=== PATIENT | male | born 1930 | race Caucasian/White ===

== ENCOUNTER 2016-11-18 01:51 | Emergency (ER) | payer MEDICARE, MEDICAID ==
[2016-11-18] MEDS ORDERED: Acetaminophen/Codeine 30-300mg Tablet ONE (04:06)
--- NOTE | 2016-11-18 08:47 | RAD ---
AP VIEW OF PELVIS: Date: 11/18/16 INDICATION: Fall with pelvic pain. FINDINGS: No definite displaced pelvic fracture is evident. There is healed deformity involving the left infer ior pubic ramus. There is healed instrumented fracture involving the right hip. There is a left hip endoprosthesis. There is diffuse osteopenia. There are scattered vascular calcifications. IMPRESSION: No acute osseous abnormality. POS: [facility]
--- NOTE | 2016-11-18 08:48 | RAD ---
CHEST ONE VIEW: History: Fall, chest pain. Comparison: 05-17-17 FINDINGS: The cardiac silhouette is magnified and upper limits of normal in size. Pulmonary vasculature remain s upper limits of normal. Mediastinum is midline with multi-lead left subclavian cardiac electronic device. No lobar consolidation or pneumothorax are apparent. There are degenerative changes of each shoulder. IMPRESSION: 1. No active cardiopulmonary abnormalities are demonstrated. POS: [facility]
--- NOTE | 2016-11-18 08:49 | CT ---
PRELIMINARY REPORT/[facility]/EMERGENCY AFTER HOURS PROCEDURE: EXAM: CT Head Without Intravenous Contrast CLINICAL HISTORY: 86 years old, male; Injury or trauma; Fall; hematoma to rt forehead and abrasions; Concussion / head injury; Consciousness not specified; Injury date: 11-17-2016 TECHNIQUE: Axial computed tomography images of the head/brain without intravenous contrast. COMPARISON: No relevant prior studies available. FINDINGS: Brain: Periventricular white matter areas of decreased density which are likely secondary to chronic ischemia from microvascular change. Diffuse cerebral atrophy. No mass effect or midline shift. No extra-axial fluid collection. No hemorrhage. Ventricles: Ventricular prominence in this patient with diffuse cerebral atrophy. Bones/joints: No fracture. Soft tissues: Anterolateral right scalp soft tissue swelling / hematoma. Sinuses: No significant disease of the paranasal sinuses. Mastoid air cells: No mastoiditis. IMPRESSION: No fracture. Anterolateral right scalp soft tissue swelling / hematoma. No acute intracranial findings. Age-related periventricular white matter changes. Diffuse cerebral atrophy. Thank you for allowing us to participate in the care of your patient. Dictated and Authenticated by: Nicanor Covarrubias MD 11/18/2016 3:45 AM Central Time ([place] \T\ [place]) FINAL REPORT EMERGENT AFTER HOURS CT OF BRAIN PERFORMED WITHOUT CONTRAST ENHANCEMENT: History: Patient had a fall with head injury with forearm abrasions. Comparison: 12-06-14 FINDINGS: There is marked generalized ventricular and sulcal prominence. There is decreased attenuation of the periventricular white matter. There are no signs of intracerebral hemorrhage or extraaxial fluid co llections. No mass lesion or mass effect. Right frontal scalp hematoma is present. IMPRESSION: 1. No acute intracranial abnormalities. 2. This report is in agreement with the temporary report issued by [facility]. POS: [facility]
--- NOTE | 2016-11-18 08:50 | CT ---
PRELIMINARY REPORT/[facility]/EMERGENCY AFTER HOURS PROCEDURE: EXAM: CT Cervical Spine Without Intravenous Contrast CLINICAL HISTORY: 86 years old, male; Injury or trauma; Fall; Sprain or strain cervical ligaments; Injury date: 2016 TECHNIQUE: Axial computed tomography images of the cervical spine without intravenous contrast. Coronal and sagittal reformatted images were created and reviewed. COMPARISON: No relevant prior studies available. FINDINGS: Vertebrae: No acute fracture. No subluxation. Old minimal superior compression of T3. Discs/spinal canal/neural foramina: Multilevel cervical degenerative / spondylitic changes with mult ilevel neural foraminal narrowing. Soft tissues: Unremarkable. Lung apices: Small bulla in each lung apex. IMPRESSION: No acute fracture or subluxation of the cervical spine. Thank you for allowing us to participate in the care of your patient. Dictated and Authenticated by: Nicanor Covarrubias MD 11/18/2016 3:51 AM Central Time ([place] \T\ [place]) FINAL REPORT EMERGENT AFTER HOURS CT OF THE CERVICAL SPINE PERFORMED WITHOUT CONTRAST ENHANCEMENT: History: Neck injury after fall. FINDINGS: Bones are demineralized. The vertebral bodies are normal in height. There is some disc narrowing at C5-6. There is some osteoporotic type cupping of multiple endplates beginning at C7 and involving T1 , T2, and T3. These are probably not on the basis of trauma but on the basis of osteoporotic change. There are marked degenerative facet changes present. There is no definitive CT evidence of an acute fracture. Lung apices show chronic appearing change. IMPRESSION: 1. Osteoporosis with cupping to the endplates which are most pronounced beginning at C7 and extendin g to T3. It is difficult to exclude if there is some minimal compression change related to an acute fall, but there is no bony retropulsion. I suspect that this is all related to osteoporotic change. If patient has persistent pain in this area, it may be helpful to obtain MRI to evaluate for any acu te edema change in this area that might suggest that changes may be related to more acute injury. 2. This report is in agreement with the temporary report issued by [facility]. POS: [facility]
== END 2016-11-18 07:50 ==
LOC: MADERS 01:51
DX: S01.81XA Laceration without foreign body of other part of head, initial encounter (principal); S51.011A Laceration without foreign body of right elbow, initial encounter; S20.211A Contusion of right front wall of thorax, initial encounter; J44.9 Chronic obstructive pulmonary disease, unspecified; F41.9 Anxiety disorder, unspecified; F32.9 Major depressive disorder, single episode, unspecified; I13.0 Hypertensive heart and chronic kidney disease with heart failure and stage 1 through stage 4 chronic kidney disease, or unspecified chronic kidney disease; I50.9 Heart failure, unspecified; N18.9 Chronic kidney disease, unspecified; D63.1 Anemia in chronic kidney disease; E78.2 Mixed hyperlipidemia; G30.9 Alzheimer's disease, unspecified; F02.80 Dementia in other diseases classified elsewhere, unspecified severity, without behavioral disturbance, psychotic disturbance, mood disturbance, and anxiety; Z95.0 Presence of cardiac pacemaker; Z86.73 Personal history of transient ischemic attack (TIA), and cerebral infarction without residual deficits; W18.30XA Fall on same level, unspecified, initial encounter
CPT/HCPCS: 70450; 71010; 72125; 72170; 94640; J7620

== ENCOUNTER 2016-12-18 17:18 | Outpatient (CLI) | payer MEDICAID, MEDICARE ==
--- NOTE | 2016-12-18 18:40 | RAD ---
HISTORY: Left rib pain. AP AND OBLIQUE VIEWS LEFT RIBS. AP and oblique views of the left wrist demonstrate no evidence of left rib fractures, subluxations o r bony lesions. IMPRESSION: Normal AP and oblique views left ribs. POS: [facility]
--- NOTE | 2016-12-18 18:41 | RAD ---
TWO VIEWS THORACIC SPINE 12/18/16 HISTORY: Thoracic pain. AP and lateral views thoracic spine is obtained. No evidence of fractures, subluxations or bony lesi ons seen. Osteopenia is noted. IMPRESSION: Normal two views thoracic spine. POS: [facility]
--- NOTE | 2016-12-18 18:42 | RAD ---
AP AND LATERAL VIEWS LUMBAR SPINE 12/18/16 HISTORY: Back pain. AP and lateral views lumbar spine is obtained. There is old compression fracture of the L1 vertebra. Osteoporosis is seen. Calcification of the aor ta is noted. IMPRESSION: L1 compression fracture likely old. No evidence of acute lumbar spine pathology seen. POS: [facility]
== END 2016-12-18 17:19 | disposition home or self-care (01) ==
LOC: MADRAD 17:18
PROVIDERS: ATTEND Family Medicine
DX: M54.9 Dorsalgia, unspecified (principal)
CPT/HCPCS: 72070; 72100

== ENCOUNTER 2018-01-14 16:21 | Emergency (ER) | payer MEDICARE, MEDICAID ==
[~2018-01-14 16:21] MED LIST: Sodium Chloride 0.9% 1,000 ML BAG ONE
[2018-01-14 17:24] LABS: #Basophils 0.1 thou/uL (0.0-0.2); #Monocytes 1.2 thou/uL (0.11-0.59); #Neutrophils 9.6 thou/uL (1.40-6.50); %Basophils 0.9 % (0.0-1.0); %Lymphocytes 21.5 % (21.0-51.0); %Monocytes 8.6 % (0.0-10.0); %Neutrophils 68.9 % (42.0-75.0); Hemoglobin 13.3 g/dL (14.0-18.0); Mean Corpuscular HGB CONC 32.9 g/dL (32.0-36.0); Mean Corpuscular Hemoglobin 30.6 pg (27.0-31.0); Platelet Count 111 thou/uL (130-400); RBC Distribution Width 12.5 % (11.5-14.5); Red Blood Cell (RBC) Count 4.36 mill/uL (4.70-6.10); White Blood Cell (WBC) Count 13.9 thou/uL (4.8-10.8)
[2018-01-14 17:28] LABS: ALT (SGPT) 17 U/L (8-55); AST (SGOT) 18 U/L (5-34); Albumin 3.8 g/dL (3.4-4.8); Alkaline Phosphatase 89 U/L (40-150); Anion Gap 19 mmol/L (10-20); BUN (Urea Nitrogen) 34 mg/dL (8.4-25.7); Bilirubin, Total 1.3 mg/dL (0.2-1.2); Calc. Creatinine Clearance 0 mL/min (70-130); Calcium 9.3 mg/dL (7.8-10.44); Carbon Dioxide 20 mmol/L (23-31); Chloride 111 mmol/L (98-107); Estimated GFR-MDRD 35; Globulin 3.3 g/dL (2.4-3.5); Glucose 147 mg/dL (83-110); Potassium 3.2 mmol/L (3.5-5.1); Protein, Total 7.1 g/dL (5.8-8.1); Sodium 147 mmol/L (136-145)
[2018-01-14 17:49] LABS: Bilirubin Small (Negative); Blood, Urine Negative (Negative); Clarity Clear (Clear); Glucose, Urine (Dipstick) Negative (Negative); Leukocyte Small (Negative); Nitrite Negative (Negative); Protein, Urine (Dipstick) 30 mg/dL (Neg-Trace); Specific Gravity, Urine 1.025 (1.005-1.030)
--- NOTE | 2018-01-14 17:50 | RAD ---
AP VIEW CHEST: 01/14/18 HISTORY: Fever and hypoxia. AP view chest obtained on 01/14/18. Comparison made to previous exam from 11/18/16. AP view chest demonstrates areas of gas beneath the right hemidiaphragm. This may represent a loop of bowel or may represent free intraperitoneal air. Cardiomegaly is seen. Pulmonary vascular congestion is seen. A dual lead intracardiac pacing device is seen. IMPRESSION: Free intraperitoneal air versus loop of bowel beneath the right hemidiaphragm. Correlate with CT abdo men and pelvis to further characterize. POS: [facility]
[2018-01-14 18:00] LABS: Bacteria/HPF 1+ HPF (None Seen); RBC/HPF 0-3 HPF (0-3); Squamous Epithelial 0-3 HPF (0-3)
--- NOTE | 2018-01-14 18:49 | CT ---
NONCONTRAST ENHANCED CT IMAGES ABDOMEN AND PELVIS 01/14/18 HISTORY: Patient with questionable free intraperitoneal air. Noncontrast enhanced CT images of the abdomen and pelvis is obtained. Bibasilar areas of atelectasis or patchy pneumonia is present. The liver and spleen are unremarkable. Area of lucency seen beneath the right hemidiaphragm represents gas within the hepatic flexure of the colon and does not represent free intraperitoneal air. The liver and spleen are unremarkable. Adrenal glands are unremarkable. Numerous calcifications seen in the left collecting system. These likely represent numerous nonobstructing left renal calculi. The pancreas is unremarkable. No evidence of periaortic lymphadenopathy seen. Atherosclerotic calcification of the abdominal aorta is seen. There is a urinary catheter within the bladder. Numerous descending and sigmoid diverticula are present without evidence of obvious diverticulitis. Bilateral hip surgical hardware is in place. There is an abnormally dilated loop of small bowel on ax ial images #46 through 55 in the right lower quadrant of the abdomen with coronal images #39 through 52. Significance of this is unknown. IMPRESSION: 1. Small segmented area of focal small bowel dilatation. 2. Extensive colonic diverticulosis. 3. No evidence of free intraperitoneal air. 4. Numerous small nonobstructing left renal calculi. POS: [facility]
== END 2018-01-14 19:19 | disposition home or self-care (01) ==
LOC: MADERS 16:21
DX: A41.9 Sepsis, unspecified organism (principal); J18.9 Pneumonia, unspecified organism; I50.9 Heart failure, unspecified; J44.9 Chronic obstructive pulmonary disease, unspecified; F03.90 Unspecified dementia, unspecified severity, without behavioral disturbance, psychotic disturbance, mood disturbance, and anxiety; F41.9 Anxiety disorder, unspecified; F32.9 Major depressive disorder, single episode, unspecified; Z86.73 Personal history of transient ischemic attack (TIA), and cerebral infarction without residual deficits
CPT/HCPCS: 36415; 51702; 71045; 74176; 80053; 81003; 81015; 83605; 85025; 87040; 93005; 96365; J1956; J7050

== ENCOUNTER 2018-01-21 13:44 | Inpatient (IN) | payer MEDICARE, MEDICAID ==
[2018-01-21] MEDS ORDERED: Ziprasidone 20 MG VIAL IM PRN (16:16)
[2018-01-21] MEDS ORDERED: Sterile Water 10 ML VIAL FS PRN (16:27)
[2018-01-21] MEDS: CARBOXYMETHYLCELLULOSE EA EYE SCH ×2 (18:01→23:11)
[2018-01-21] MEDS: Artificial Tear Sol 15 ML BOT EA EYE SCH (21:01)
[2018-01-21] MEDS: Multivitamin W/ Minerals 1 TAB PO SCH (21:02)
[2018-01-21] MEDS: Gabapentin 400 MG CAP PO SCH (21:02)
[2018-01-21] MEDS: Oxybutynin 5 MG TAB PO SCH (21:02)
[2018-01-22] MEDS: Multivitamin W/ Minerals 1 TAB PO SCH ×2 (08:40→20:24)
[2018-01-22] MEDS: Fish Oil 1,000 MG CAP PO SCH (08:40)
[2018-01-22] MEDS: Amlodipine 5 MG TAB PO SCH (08:40)
[2018-01-22] MEDS: Ferrous Sulfate 325 MG TAB PO SCH (08:40)
[2018-01-22] MEDS: CARBOXYMETHYLCELLULOSE EA EYE SCH (08:41)
[2018-01-22] MEDS: Artificial Tear Sol 15 ML BOT EA EYE SCH ×2 (08:42→20:24)
[2018-01-22] MEDS ORDERED: Artificial Tear Sol 15 ML BOT EA EYE PRN (10:05)
--- NOTE | 2018-01-22 14:05 | HP ---
DATE OF ADMISSION: 01/21/2018 ATTENDING: Dr. Murry. REASON FOR ADMISSION: Skilled rehabilitation in [facility]. HISTORY OF PRESENT ILLNESS AND HOSPITAL COURSE: Mr. Mora is an 87-year-old group home resident with advanced dementia, CHF, COPD, CVA, chronic kidney disease and chronic thrombocytopenia, who was reported to have an acute onset of cough, low-grade fever and altered mental status. This is associated with hypoxia and worsening confusion. He was sent to [facility] and was subsequently admitted on 01/14/2018 pneumonia with possible sepsis. Upon presentation, patient has a lactic acid of 4 with an anion gap of 19 and creatinine of 1.86. His x-ray was concerning for some free air, so he underwent a CT scan of the abdomen and pelvis which did not show any evidence for free intraperitoneal air. There was some question of pulmonary vascular congestion and infiltrate in the right lower lobe, possibly healthcare related, pneumonia, so he was admitted and treated appropriately in the hospital. His UA also showed mild urinary tract infection. Patient was started on IV vanc and was started also on gentle IV fluid hydration. His blood culture was negative x2. He had significant neutrophils 85%, which is down to 90% prior to discharge. There was no significant leukocytosis reported. His renal function improved to normal with a GFR of 70 prior to discharge. During his hospital stay there was reported behavioral issues in the beginning that requires a 24 hour sitter. This was associated with altered mental status that eventually cleared up per report,. He was deemed at baseline his mental status prior to discharge not requiring a sitter any longer. Prior to discharge, it was reported by the hospitalist that he was making intelligent conversation, but very weak, difficult to understand because of the garbled speech that he had at baseline. There was also a speech therapy evaluation because of the dysphagia. There was a report that patient has not been eating appropriately in the hospital and deemed to be very high risk of aspiration. After contacting the patient's family including his biological children and his stepdaughter, Lisbeth, who acts as the primary caregiver and then medical power of compliance attorney. It was a mutual decision of the family to decline PEG tube feeding. The patient was started on pleasure feeding as per speech therapy's recommendation. He is currently in pureed diet and nectar thickened liquid. The family also confirmed the DNR status of the patient. There was also a palliative care consult during this hospitalization and the patient opted trial of skilled therapy in [facility] and may reconsider hospice care in the event that patient does not improve with the therapy. Patient was transferred to [facility] for skilled rehabilitation. When evaluated , patient's family is not at bedside. Patient was awake, alert, knows his name and able to recognize me as his doctor. He answers simple questions, but with garbled speech. He was tolerating the pureed diet and nectar thickened liquids when examined. There was no choking, coughing spells when eating. Patient appears comfortable in exam and he denies any issues or pain. PAST MEDICAL HISTORY: Hypertension, advanced dementia, congestive heart failure , unknown ejection fraction, [facility] COPD, previously on home oxygen. Cardiac pacemaker in situ, CKD, thrombocytopenia, osteoarthritis, depression, anxiety, bilateral broken hips at different times, history of multiple falls due to unsteadiness of gait. History of CVA, history of orthostatic hypotension, previously on midodrine. History of dysautonomic syndrome, history of chronic low back pain, neuropathic pain, closed fracture of mid cervical section been more secondary to fall, combined hyperlipidemia, overactive bladder, chronic anemia, history of recurrent urinary tract infection. PAST SURGICAL HISTORY: 1. 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 2. Right hip surgery on 04/20/2014. 3. Left hip surgery on 01/02/2013. FAMILY HISTORY: Noncontributory. SOCIAL HISTORY: Former smoker for 20 years. He has not been smoking for several years now. No history of alcohol intake. He is a . Stepdaughter is nonmedical power of compliance attorney and is actively involved in patient 's care. ALLERGIES: PENICILLIN, AGGRENOX, FENTANYL and NIACIN. PREVIOUS HOSPITALIZATION: 10/07/2015 for complicated UTI/urosepsis at [facility] and as per surgical history. REVIEW OF SYSTEMS: Limited secondary to advanced dementia. MEDICATIONS: Acetaminophen 650 mg q.4 hours p.r.n., amlodipine 10 mg p.o. daily , Artificial Tears 1 drop each eye q.i.d. p.r.n., vitamin D3 of 2000 units p.o. daily, ferrous sulfate 325 mg p.o. daily, fish oil 1000 mg p.o. daily, gabapentin 400 mg p.o. at bedtime, multivitamin with minerals 1 tablet p.o. b.i.d., oxybutynin 5 mg p.o. at bedtime, sertraline 100 mg p.o. at bedtime, Geodon 10 mg IM q.8 hours p.r.n., memantine one capsule daily, donepezil, Levaquin 500 mg p.o. daily for 7 days. PHYSICAL EXAMINATION: VITAL SIGNS: Blood pressure 144/70, temperature 97.6, pulse 61, respiration rate 18, O2 sat 94% room air, weight 119 pounds, height 5 feet 8 inches. GENERAL: Patient is awake, alert, knows his name only confused, comfortable in exam, not in distress. HEENT: Normocephalic, atraumatic. PERRL, intact EOM. Anicteric sclerae. Oral mucosa is moist. Tongue in midline. No facial asymmetry. NECK: Supple. No LAD. Full range of motion, no swelling, no JVD, no bruit. CHEST: Normal excursion, clear to auscultation bilaterally. HEART: RRR. Normal S1 and S2. No murmurs. ABDOMEN: Flat, soft, normoactive bowel sounds, nondistended, nontender. No rebound or guarding bilaterally. EXTREMITIES: No edema, no cyanosis. NEUROLOGIC: Nonfocal. DTRs 2+. Gait unsteady. Answers questions with garbled and incomprehensible speech. PSYCHIATRIC: Confused, calm and cooperative. SKIN: Dry. No rashes, no lesions, no jaundice. LABORATORY DATA: Latest lab works and tests 01/20/2018, WBC 10.3, hemoglobin 13.6, hematocrit 40, platelets 143. Sodium 141, potassium 3.7, chloride 111, anion gap 14, BUN 15, creatinine 1.010, estimated GFR 70, glucose 89, calcium 9.1. Lactic acid on 01/15/2018 was 0.7. ASSESSMENT: 1.Severe debility 2. Healthcare-associated pneumonia. 3. Chronic dysphagia, on pleasure feeding of pureed and thickened diet as per speech therapy's recommendations. 4. Alzheimer dementia, advanced, with behavioral disturbances. . 5. Hyponatremia, resolved.. 6. Urinary tract infection, improved 7. Acute kidney injury, resolved. 8. Hypertension. 9. Parkinson's disease. 10. Moderate Maluntrtion. 11. Unstable gait. 12. History of falls. PLAN: 1. The patient is admitted for skilled rehabilitation in [facility]. We will continue all current medications per transfer list except for memantine secondary to drug reactions including potential risk for prolonged QT. 2. DIET: For pleasure feeding with pureed and thickened nectar liquids per speech therapy's recommendations from the hospital. 3. Aspiration precautions. 4. ACTIVITY: Complete bed rest with assistance for transfers. 5. Refer to PT, OT and ST for evaluate and treat. 6. CODE STATUS: DNR. 7. DISPOSITION: snf. Lengthy discussion with the family as represented by Lisbeth Heredia on the phone. We discussed patient's current status, previous tests and findings in the hospital and current medications. Stepdaughter, Lisbeth Heredia is well aware of the patient's advanced dementia, worsening confusion with behaviors. We discussed nutritional status of the patient. Per records, patient has moderate malnutrition (chronic illness). Kirsty's family declined aggressive interventions including PEG tube feedings. She is well aware of the risk of potential aspiration secondary to advanced dementia, confusion and history of dysphagia. Ms. Taylor also mentioned that Palliative Care was consulted in the hospital that they were not ready for this yet. Ms. Taylor also reports that possible placement in [facility], but may change depending on patient's improvement status. Ms. Heredia who acts as the nonmedical power of compliance attorney is the one assigned by patient's three biological sons as per hospital records and is the main contact for patient's care. Ms. Heredia is agreeable to patient's current treatment. We will notify her anytime with acute changes in the patient's status and management. Ms. Heredia was encouraged to ask questions and all her questions were answered to her satisfaction. She was very thankful for letting her know of patient's current conditions. [facility]ONE
[2018-01-22] MEDS: Gabapentin 400 MG CAP PO SCH (20:24)
[2018-01-22] MEDS: Oxybutynin 5 MG TAB PO SCH (20:25)
[2018-01-23] MEDS: Amlodipine 5 MG TAB PO SCH (08:16)
[2018-01-23] MEDS: Ferrous Sulfate 325 MG TAB PO SCH (08:17)
[2018-01-23] MEDS: Fish Oil 1,000 MG CAP PO SCH (08:17)
[2018-01-23] MEDS: Artificial Tear Sol 15 ML BOT EA EYE SCH ×2 (08:17→20:26)
[2018-01-23] MEDS: Multivitamin W/ Minerals 1 TAB PO SCH ×2 (08:17→20:26)
[2018-01-23] MEDS: Gabapentin 400 MG CAP PO SCH (20:26)
[2018-01-23] MEDS: Oxybutynin 5 MG TAB PO SCH (20:26)
[2018-01-24] MEDS: Acetaminophen 325 MG TAB PO PRN ×3 (05:53→20:08)
[2018-01-24] MEDS: Fish Oil 1,000 MG CAP PO SCH (08:43)
[2018-01-24] MEDS: Amlodipine 5 MG TAB PO SCH (08:43)
[2018-01-24] MEDS: Multivitamin W/ Minerals 1 TAB PO SCH ×2 (08:44→20:08)
[2018-01-24] MEDS: Artificial Tear Sol 15 ML BOT EA EYE SCH ×2 (08:44→20:07)
[2018-01-24] MEDS ORDERED: Ferrous Sulfate 220 MG/5 ML PO SCH (09:00)
[2018-01-24 14:27] LABS: Anion Gap 14 mmol/L (10-20); BUN (Urea Nitrogen) 17 mg/dL (8.4-25.7); Calc. Creatinine Clearance 39 mL/min (70-130); Calcium 8.8 mg/dL (7.8-10.44); Carbon Dioxide 23 mmol/L (23-31); Chloride 109 mmol/L (98-107); Estimated GFR-MDRD 70; Potassium 3.8 mmol/L (3.5-5.1); Sodium 142 mmol/L (136-145)
[2018-01-24 15:00] LABS: Glucose 53 mg/dL (83-110)
[2018-01-24] MEDS: Oxybutynin 5 MG TAB PO SCH (20:08)
[2018-01-24] MEDS: Gabapentin 400 MG CAP PO SCH (20:08)
[2018-01-25] MEDS: Multivitamin W/ Minerals 1 TAB PO SCH ×2 (08:34→22:16)
[2018-01-25] MEDS: Amlodipine 5 MG TAB PO SCH (08:35)
[2018-01-25] MEDS: Fish Oil 1,000 MG CAP PO SCH (08:35)
[2018-01-25] MEDS: Artificial Tear Sol 15 ML BOT EA EYE SCH ×2 (08:35→22:15)
[2018-01-25] MEDS ORDERED: Ferrous Sulfate 325 MG TAB PO SCH (09:00)
[2018-01-25] MEDS: Oxybutynin 5 MG TAB PO SCH (22:16)
[2018-01-25] MEDS: Gabapentin 400 MG CAP PO SCH (22:19)
[2018-01-26] MEDS: Amlodipine 5 MG TAB PO SCH (08:06)
[2018-01-26] MEDS: Fish Oil 1,000 MG CAP PO SCH (08:08)
[2018-01-26] MEDS: Multivitamin W/ Minerals 1 TAB PO SCH ×2 (08:08→21:20)
[2018-01-26] MEDS: Artificial Tear Sol 15 ML BOT EA EYE SCH ×2 (08:08→21:40)
[2018-01-26] MEDS: Oxybutynin 5 MG TAB PO SCH (21:20)
[2018-01-26] MEDS: Gabapentin 400 MG CAP PO SCH (21:20)
[2018-01-26] MEDS: Acetaminophen 325 MG TAB PO PRN (21:20)
[2018-01-27] MEDS: Amlodipine 5 MG TAB PO SCH (08:49)
[2018-01-27] MEDS: Artificial Tear Sol 15 ML BOT EA EYE SCH ×2 (08:50→21:28)
[2018-01-27] MEDS: Multivitamin W/ Minerals 1 TAB PO SCH ×2 (08:50→21:29)
[2018-01-27] MEDS: Fish Oil 1,000 MG CAP PO SCH (08:50)
[2018-01-27] MEDS: Gabapentin 400 MG CAP PO SCH (21:28)
[2018-01-27] MEDS: Acetaminophen 325 MG TAB PO PRN (21:28)
[2018-01-27] MEDS: Oxybutynin 5 MG TAB PO SCH (21:29)
[2018-01-28] MEDS: Amlodipine 5 MG TAB PO SCH (08:31)
[2018-01-28] MEDS: Multivitamin W/ Minerals 1 TAB PO SCH ×2 (08:31→21:48)
[2018-01-28] MEDS: Artificial Tear Sol 15 ML BOT EA EYE SCH ×2 (08:32→21:47)
[2018-01-28] MEDS: Fish Oil 1,000 MG CAP PO SCH (08:35)
[2018-01-28] MEDS: Gabapentin 400 MG CAP PO SCH (21:48)
[2018-01-28] MEDS: Oxybutynin 5 MG TAB PO SCH (21:48)
[2018-01-29] MEDS: Amlodipine 5 MG TAB PO SCH (11:30)
[2018-01-29] MEDS: Artificial Tear Sol 15 ML BOT EA EYE SCH ×2 (11:30→20:58)
[2018-01-29] MEDS: Fish Oil 1,000 MG CAP PO SCH (11:31)
[2018-01-29] MEDS: Multivitamin W/ Minerals 1 TAB PO SCH ×2 (11:32→20:58)
[2018-01-29] MEDS: Oxybutynin 5 MG TAB PO SCH (20:58)
[2018-01-29] MEDS: Gabapentin 400 MG CAP PO SCH (20:58)
[2018-01-30] MEDS: Artificial Tear Sol 15 ML BOT EA EYE SCH ×2 (11:03→21:19)
[2018-01-30] MEDS: Fish Oil 1,000 MG CAP PO SCH ×2 (11:03→11:05)
[2018-01-30] MEDS: Multivitamin W/ Minerals 1 TAB PO SCH ×2 (11:03→21:19)
[2018-01-30] MEDS: Amlodipine 5 MG TAB PO SCH (11:04)
[2018-01-30] MEDS: Gabapentin 400 MG CAP PO SCH (21:19)
[2018-01-30] MEDS: Oxybutynin 5 MG TAB PO SCH (21:19)
[2018-01-31] MEDS: Multivitamin W/ Minerals 1 TAB PO SCH ×2 (09:09→20:27)
[2018-01-31] MEDS: Amlodipine 5 MG TAB PO SCH (09:10)
[2018-01-31] MEDS: Artificial Tear Sol 15 ML BOT EA EYE SCH ×2 (09:11→20:28)
[2018-01-31] MEDS: Acetaminophen 325 MG TAB PO PRN ×2 (13:27→20:27)
[2018-01-31] MEDS: Gabapentin 400 MG CAP PO SCH (20:26)
[2018-01-31] MEDS: Oxybutynin 5 MG TAB PO SCH (20:27)
[2018-02-01] MEDS: Artificial Tear Sol 15 ML BOT EA EYE SCH ×2 (08:28→20:28)
[2018-02-01] MEDS: Amlodipine 5 MG TAB PO SCH (08:28)
[2018-02-01] MEDS: Fish Oil 1,000 MG CAP PO SCH (08:28)
[2018-02-01] MEDS: Multivitamin W/ Minerals 1 TAB PO SCH ×2 (08:28→20:28)
[2018-02-01] MEDS: Acetaminophen 325 MG TAB PO PRN ×2 (08:38→20:30)
[2018-02-01] MEDS: Gabapentin 400 MG CAP PO SCH (20:28)
[2018-02-01] MEDS: Oxybutynin 5 MG TAB PO SCH (20:28)
[2018-02-02] MEDS: Amlodipine 5 MG TAB PO SCH (09:09)
[2018-02-02] MEDS: Acetaminophen 325 MG TAB PO PRN ×2 (09:09→20:47)
[2018-02-02] MEDS: Fish Oil 1,000 MG CAP PO SCH (09:09)
[2018-02-02] MEDS: Multivitamin W/ Minerals 1 TAB PO SCH ×2 (09:09→20:43)
[2018-02-02] MEDS: Artificial Tear Sol 15 ML BOT EA EYE SCH ×2 (09:10→20:39)
[2018-02-02] MEDS: Oxybutynin 5 MG TAB PO SCH (20:44)
[2018-02-02] MEDS: Gabapentin 400 MG CAP PO SCH (20:46)
[2018-02-03] MEDS: Amlodipine 5 MG TAB PO SCH (08:54)
[2018-02-03] MEDS: Multivitamin W/ Minerals 1 TAB PO SCH ×2 (08:54→20:29)
[2018-02-03] MEDS: Fish Oil 1,000 MG CAP PO SCH (08:55)
[2018-02-03] MEDS: Acetaminophen 325 MG TAB PO PRN ×2 (08:55→20:29)
[2018-02-03] MEDS: Artificial Tear Sol 15 ML BOT EA EYE SCH ×2 (08:55→20:29)
[2018-02-03] MEDS: Oxybutynin 5 MG TAB PO SCH (20:28)
[2018-02-03] MEDS: Gabapentin 400 MG CAP PO SCH (20:29)
[2018-02-04] MEDS: Acetaminophen 325 MG TAB PO PRN ×2 (10:58→20:14)
[2018-02-04] MEDS: Fish Oil 1,000 MG CAP PO SCH (10:58)
[2018-02-04] MEDS: Amlodipine 5 MG TAB PO SCH (10:59)
[2018-02-04] MEDS: Multivitamin W/ Minerals 1 TAB PO SCH ×2 (10:59→20:14)
[2018-02-04] MEDS: Artificial Tear Sol 15 ML BOT EA EYE SCH ×2 (11:01→20:15)
[2018-02-04] MEDS: Gabapentin 400 MG CAP PO SCH (20:14)
[2018-02-04] MEDS: Oxybutynin 5 MG TAB PO SCH (20:15)
[2018-02-05] MEDS: Amlodipine 5 MG TAB PO SCH (08:20)
[2018-02-05] MEDS: Fish Oil 1,000 MG CAP PO SCH (08:20)
[2018-02-05] MEDS: Multivitamin W/ Minerals 1 TAB PO SCH ×2 (08:20→20:38)
[2018-02-05] MEDS: Acetaminophen 325 MG TAB PO PRN ×2 (08:21→20:38)
[2018-02-05] MEDS: Artificial Tear Sol 15 ML BOT EA EYE SCH ×2 (08:21→20:37)
[2018-02-05] MEDS: Oxybutynin 5 MG TAB PO SCH (20:37)
[2018-02-05] MEDS: Gabapentin 400 MG CAP PO SCH (20:38)
[2018-02-06] MEDS: Artificial Tear Sol 15 ML BOT EA EYE SCH ×2 (08:19→20:43)
[2018-02-06] MEDS: Fish Oil 1,000 MG CAP PO SCH (08:20)
[2018-02-06] MEDS: Amlodipine 5 MG TAB PO SCH (08:21)
[2018-02-06] MEDS: Multivitamin W/ Minerals 1 TAB PO SCH ×2 (08:21→20:43)
[2018-02-06] MEDS: Acetaminophen 325 MG TAB PO PRN ×2 (08:21→20:43)
[2018-02-06] MEDS: Oxybutynin 5 MG TAB PO SCH (20:43)
[2018-02-06] MEDS: Gabapentin 400 MG CAP PO SCH (20:43)
[2018-02-07] MEDS: Amlodipine 5 MG TAB PO SCH (08:12)
[2018-02-07] MEDS: Fish Oil 1,000 MG CAP PO SCH (08:12)
[2018-02-07] MEDS: Multivitamin W/ Minerals 1 TAB PO SCH ×2 (08:14→21:05)
[2018-02-07] MEDS: Artificial Tear Sol 15 ML BOT EA EYE SCH ×2 (08:15→21:04)
[2018-02-07] MEDS: Acetaminophen 325 MG TAB PO PRN (21:05)
[2018-02-07] MEDS: Gabapentin 400 MG CAP PO SCH (21:05)
[2018-02-07] MEDS: Oxybutynin 5 MG TAB PO SCH (21:05)
[2018-02-08] MEDS: Amlodipine 5 MG TAB PO SCH (08:07)
[2018-02-08] MEDS: Multivitamin W/ Minerals 1 TAB PO SCH ×2 (08:08→20:26)
[2018-02-08] MEDS: Artificial Tear Sol 15 ML BOT EA EYE SCH ×2 (08:08→20:26)
[2018-02-08] MEDS: Fish Oil 1,000 MG CAP PO SCH (08:13)
[2018-02-08] MEDS: Gabapentin 400 MG CAP PO SCH (20:26)
[2018-02-08] MEDS: Acetaminophen 325 MG TAB PO PRN (20:26)
[2018-02-08] MEDS: Oxybutynin 5 MG TAB PO SCH (20:26)
[2018-02-09] MEDS: Fish Oil 1,000 MG CAP PO SCH (07:56)
[2018-02-09] MEDS: Artificial Tear Sol 15 ML BOT EA EYE SCH ×2 (07:56→20:43)
[2018-02-09] MEDS: Amlodipine 5 MG TAB PO SCH (07:57)
[2018-02-09] MEDS: Multivitamin W/ Minerals 1 TAB PO SCH ×2 (07:57→20:42)
[2018-02-09] MEDS: Oxybutynin 5 MG TAB PO SCH (20:42)
[2018-02-09] MEDS: Acetaminophen 325 MG TAB PO PRN (20:42)
[2018-02-09] MEDS: Gabapentin 400 MG CAP PO SCH (20:42)
[2018-02-10] MEDS: Artificial Tear Sol 15 ML BOT EA EYE SCH ×2 (08:06→19:59)
[2018-02-10] MEDS: Fish Oil 1,000 MG CAP PO SCH (08:06)
[2018-02-10] MEDS: Acetaminophen 325 MG TAB PO PRN ×2 (08:07→19:57)
[2018-02-10] MEDS: Amlodipine 5 MG TAB PO SCH (08:07)
[2018-02-10] MEDS: Multivitamin W/ Minerals 1 TAB PO SCH ×2 (08:08→19:59)
--- NOTE | 2018-02-10 13:32 | RAD ---
CHEST ONE VIEW: HISTORY: Pneumonia. Followup. COMPARISON: 01/14/2018 FINDINGS: The cardiac silhouette is magnified and enlarged. The pulmonary vasculature remains engorged. The m ediastinum is midline with a dual-lead left subclavian cardiac electronic device. Patchy parenchymal opacity at the lung base is less pronounced than on the previous study. No lobar consolidation or e vidence of pneumothorax. IMPRESSION: 1. Interval clearing, bibasilar patchy infiltrates. No new abnormalities demonstrated. 2. Borderline pulmonary vascular congestion, stable. POS: [facility]
[2018-02-10] MEDS: Oxybutynin 5 MG TAB PO SCH (19:59)
[2018-02-10] MEDS: Gabapentin 400 MG CAP PO SCH (19:59)
[2018-02-11] MEDS: Multivitamin W/ Minerals 1 TAB PO SCH ×2 (08:20→20:23)
[2018-02-11] MEDS: Amlodipine 5 MG TAB PO SCH (08:20)
[2018-02-11] MEDS: Artificial Tear Sol 15 ML BOT EA EYE SCH ×2 (08:21→20:23)
[2018-02-11] MEDS: Fish Oil 1,000 MG CAP PO SCH (08:21)
[2018-02-11] MEDS: Acetaminophen 325 MG TAB PO PRN ×2 (08:21→20:23)
[2018-02-11] MEDS: Gabapentin 400 MG CAP PO SCH (20:22)
[2018-02-11] MEDS: Oxybutynin 5 MG TAB PO SCH (20:23)
[2018-02-12] MEDS: Amlodipine 5 MG TAB PO SCH (09:50)
[2018-02-12] MEDS: Artificial Tear Sol 15 ML BOT EA EYE SCH ×2 (09:50→20:07)
[2018-02-12] MEDS: Multivitamin W/ Minerals 1 TAB PO SCH ×2 (09:50→20:08)
[2018-02-12] MEDS: Fish Oil 1,000 MG CAP PO SCH (09:50)
[2018-02-12] MEDS: Acetaminophen 325 MG TAB PO PRN (20:08)
[2018-02-12] MEDS: Gabapentin 400 MG CAP PO SCH (20:08)
[2018-02-12] MEDS: Oxybutynin 5 MG TAB PO SCH (20:08)
[2018-02-13] MEDS: Amlodipine 5 MG TAB PO SCH (09:49)
[2018-02-13] MEDS: Multivitamin W/ Minerals 1 TAB PO SCH ×2 (09:49→20:33)
[2018-02-13] MEDS: Fish Oil 1,000 MG CAP PO SCH (09:49)
[2018-02-13] MEDS: Artificial Tear Sol 15 ML BOT EA EYE SCH ×2 (09:54→20:33)
[2018-02-13] MEDS: Gabapentin 400 MG CAP PO SCH (20:33)
[2018-02-13] MEDS: Oxybutynin 5 MG TAB PO SCH (20:33)
[2018-02-13] MEDS: Acetaminophen 325 MG TAB PO PRN (20:43)
[2018-02-14] MEDS: Fish Oil 1,000 MG CAP PO SCH (08:46)
[2018-02-14] MEDS: Amlodipine 5 MG TAB PO SCH (08:58)
[2018-02-14] MEDS: Multivitamin W/ Minerals 1 TAB PO SCH ×2 (08:59→21:12)
[2018-02-14] MEDS: Artificial Tear Sol 15 ML BOT EA EYE SCH ×2 (09:03→21:15)
[2018-02-14] MEDS: Acetaminophen 325 MG TAB PO PRN ×2 (11:25→21:11)
[2018-02-14] MEDS: Gabapentin 400 MG CAP PO SCH (21:16)
[2018-02-14] MEDS: Oxybutynin 5 MG TAB PO SCH (21:16)
[2018-02-15] MEDS: Fish Oil 1,000 MG CAP PO SCH (08:11)
[2018-02-15] MEDS: Acetaminophen 325 MG TAB PO PRN ×2 (08:12→20:19)
[2018-02-15] MEDS: Amlodipine 5 MG TAB PO SCH (08:12)
[2018-02-15] MEDS: Artificial Tear Sol 15 ML BOT EA EYE SCH ×2 (08:12→20:29)
[2018-02-15] MEDS: Multivitamin W/ Minerals 1 TAB PO SCH ×2 (08:12→20:20)
[2018-02-15] MEDS: Oxybutynin 5 MG TAB PO SCH (20:21)
[2018-02-15] MEDS: Gabapentin 400 MG CAP PO SCH (20:21)
[2018-02-16] MEDS: Amlodipine 5 MG TAB PO SCH (07:43)
[2018-02-16] MEDS: Multivitamin W/ Minerals 1 TAB PO SCH ×2 (07:44→20:34)
[2018-02-16] MEDS: Artificial Tear Sol 15 ML BOT EA EYE SCH ×2 (07:44→20:34)
[2018-02-16] MEDS: Fish Oil 1,000 MG CAP PO SCH (07:44)
[2018-02-16] MEDS: Acetaminophen 325 MG TAB PO PRN (07:44)
[2018-02-16] MEDS: Gabapentin 400 MG CAP PO SCH (20:34)
[2018-02-16] MEDS: Oxybutynin 5 MG TAB PO SCH (20:34)
[2018-02-17] MEDS: Artificial Tear Sol 15 ML BOT EA EYE SCH ×2 (08:13→21:09)
[2018-02-17] MEDS: Amlodipine 5 MG TAB PO SCH (08:14)
[2018-02-17] MEDS: Multivitamin W/ Minerals 1 TAB PO SCH ×2 (08:15→21:10)
[2018-02-17] MEDS: Fish Oil 1,000 MG CAP PO SCH (08:17)
[2018-02-17] MEDS: Polyethylene Glycol 3350 17 GM Packet PO SCH (08:59)
[2018-02-17] MEDS ORDERED: Docusate 100 MG CAP PO PRN (09:03)
[2018-02-17 18:52] VITALS: BMI 18.5
[2018-02-17 19:26] VITALS: TEMP 97.2
[2018-02-17] MEDS: Gabapentin 400 MG CAP PO SCH (21:10)
[2018-02-17] MEDS: Oxybutynin 5 MG TAB PO SCH (21:10)
[2018-02-18] MEDS: Polyethylene Glycol 3350 17 GM Packet PO SCH (08:05)
[2018-02-18] MEDS: Amlodipine 5 MG TAB PO SCH (08:05)
[2018-02-18] MEDS: Multivitamin W/ Minerals 1 TAB PO SCH (08:05)
[2018-02-18] MEDS: Fish Oil 1,000 MG CAP PO SCH (08:06)
[2018-02-18] MEDS: Artificial Tear Sol 15 ML BOT EA EYE SCH (08:13)
[2018-02-18 08:56] VITALS: BP 122/65
--- NOTE | 2018-02-19 23:26 | DIS ---
DATE OF ADMISSION: 01/21/2018 DATE OF DISCHARGE: 02/18/2018 ATTENDING: Hanna Murry M.D. REASON FOR ADMISSION: Skilled rehabilitation after recent hospitalization. DIAGNOSES: 1. Severe debility, general weakness. 2. Alzheimer's dementia, advanced with behavioral disturbances. 3. Chronic dysphagia, on pleasure feeding of pureed and thickened diet only per family's request. Sheri fernandez declined PEG tube feeding. 4. Pneumonia, probable aspiration, treated, resolved. 5. Parkinson's disease. 6. Moderate malnutrition. 7. Acute urinary tract infection treated, resolved. 8. Hypertension. 9. Unstable gait. 10. History of falls. 11. Depression, anxiety. 12. Overactive bladder. 13. Neuropathic pain. DISPOSITION: [facility] per family's request. CONDITION ON DISCHARGE: Stable but long-term prognosis is poor. DISCHARGE MEDICATIONS: 1. Amlodipine 10 mg p.o. daily. 2. Ferrous sulfate 325 mg p.o. daily. 3. Gabapentin 400 mg p.o. at bedtime. 4. Multivitamins 1 tablet p.o. daily. 5. Oxybutynin 5 mg p.o. bedtime. 6. Sertraline 100 mg p.o. at bedtime. 7. Artificial Tears 1 drop each eye q.i.d. p.r.n. 8. Acetaminophen 650 mg p.o. q.4 hours p.r.n. DIET: Pleasure feeding of pureed and nectar thickened liquid. Aspiration precautions. ACTIVITIES: Complete bed bound, needs assistance for all transfers. The patient is at risk for fall . Okay to be ramesh chair during daytime. CODE STATUS: DO NOT RESUSCITATE. HISTORY OF PRESENT ILLNESS AND HOSPITAL COURSE: Mr. Mora is an 87-year-old long-term resident of longterm with advanced dementia with multiple chronic medical conditions including advanced demen tia, CHF, COPD, CVA, chronic kidney disease, chronic thrombocytopenia, was initially admitted to [facility] secondary to acute onset of cough associated with low grade fever and a ltered mental status. The patient was initially residing at [facility]. From [facility], patient was transferred to [facility] and was treated approp riately with IV antibiotic. During that time, patient was treated for sepsis, pneumonia, acute kidne y injury. During his hospital stay, patient was noted to have severe dysphagia. There were several family discussions by the Hospitalist and the nephrology social worker/bottle caser during his recent hospitali zation. Her stepdaughter, Lisbeth, who acts as a primary caregiver but nonmedical power of operations scheduler as represented the family. I was told that patient has kids out of state and Lisbeth is the only one bhavik t lives in town. With several discussions by the case management and the Hospitalist with the family , they gave the verbal order to let Lisbeth be the auto claim representative of the family for the patient. At at time, it was a mutual decision of the family to decline PEG tube feedings given the patient's over all conditions, advanced age and advanced dementia. It was reported that patient has significant beh aviors during his hospitalization requiring 24 hours later. He was also given Geodon IM intermittent ly secondary to aggressive behaviors pulling his IVs and is not a good candidate for PEG tube f eeding. The family also confirmed the DNR status of the patient. There was an initial palliative co nsult during this hospitalization. Patient's family opted trial of skilled therapy in [place] a nd may reconsider hospice care patient does not improve with the therapy. Thus patient was tra nsferred to [place] on 01/21/2018. At that time, the overall behavior of the patient has been s tabilized. During his stay in [facility], he never required 24-hour sitter at all. He re royal to be confused with intermittent garbled speech. He tolerated the pureed diet and nectar thick ened during his rehab course. There was no choking or coughing spells noted when eating and patient was eating well per staff. He completed his oral antibiotic during his rehab course. The repeat jay st x-ray on 02/10/2018 showed interval clearing of the bibasilar patchy infiltrates with no new abnor malities demonstrated. His borderline pulmonary vascular congestion was reported to be stable for im aging studies. I made several discussions with the family regarding his discharge disposition along with our nephrology social worker. Family reported that they are not going back to [facility] thi s time and requested to be referred to the [facility] for long-term care. After review of his medical records, [facility] accepted the patient. During his rehab course, shelia quiñones was intermittently cooperative with the therapist depending on how confused he is for the day. He made low improvement with overall functional status and over the course period, the main barrier f or the therapy is patient's confusion. He was also noted to have a very poor safety awareness and he remain at risk for fall. He was reported to be walking on his own at times prior to discharge. The re was no significant fall during his rehab course. A few days prior to discharge, patient was repor penelope to have intermittent agitation and anxiety. He sometimes fights with the staff for unknown reaso n. He sometimes declines to take his medicine, but after a while, he is cooperative and takes his me dicine. His weight was stable at 122 pounds. His admitting weight was at 119. After several discus sions with the family as represented by Lisbeth, his daughter who acts as a surrogate, as the represent ative for the family. There was mutual decision of the family to transfer the patient to [facility] and palliative care via hospice care. Family had already talked to [facility] and agreed to start palliative care once admitted at [facility]. Vital signs prior to discharge, blood pressure 122/65, temperature 97.2, pulse 63, respirations 16, O 2 saturation 96% on room air, weight 122 pounds, height 5 feet 8 inches. Time spent on this discharge in examining the patient and coordinating care 35 minutes.
== END 2018-02-18 14:15 | DRG 178 ==
LOC: MADMS 13:44
PROVIDERS: ADMIT Family Medicine; ATTEND Family Medicine
DX: J69.0 Pneumonitis due to inhalation of food and vomit (principal); F02.81 Dementia in other diseases classified elsewhere, unspecified severity, with behavioral disturbance; N39.0 Urinary tract infection, site not specified; E44.0 Moderate protein-calorie malnutrition; I13.0 Hypertensive heart and chronic kidney disease with heart failure and stage 1 through stage 4 chronic kidney disease, or unspecified chronic kidney disease; F44.9 Dissociative and conversion disorder, unspecified; Z86.73 Personal history of transient ischemic attack (TIA), and cerebral infarction without residual deficits; D69.6 Thrombocytopenia, unspecified; Z95.0 Presence of cardiac pacemaker; M19.90 Unspecified osteoarthritis, unspecified site; Z66 Do not resuscitate; F41.9 Anxiety disorder, unspecified; F32.9 Major depressive disorder, single episode, unspecified; Z91.81 History of falling; M54.5 Low back pain; G89.29 Other chronic pain; E78.2 Mixed hyperlipidemia; N32.81 Overactive bladder; D63.1 Anemia in chronic kidney disease; Z87.891 Personal history of nicotine dependence; G30.9 Alzheimer's disease, unspecified; G20 Parkinson's disease; R26.9 Unspecified abnormalities of gait and mobility; Z74.01 Bed confinement status; I50.9 Heart failure, unspecified; N18.9 Chronic kidney disease, unspecified
CPT/HCPCS: 36415; 36416; 71045; 80048; G8978-GP-CL; G8978-GP-CM; G8979-GP-CK; G8987-GO-CM; G8988-GO-CJ; G8996-GN-CM; G8997-GN-CM